=== PATIENT | female | born 1960 | race Caucasian/White ===

== ENCOUNTER 2017-01-16 10:00 | Outpatient (CLI) | payer OTHER ==
--- NOTE | 2017-01-27 17:52 | Mammography Report ---
DIGITAL SCREENING MAMMOGRAM: 01/16/2017 CLINICAL INDICATION: A 56-year-old nulliparous patient with family history of breast cancer, history of bilateral implants, history of benign biopsy. COMPARISON: Films from [place], [place] dated 11/08/2015, 04/02/2006. TECHNIQUE: Routine CC and MLO projections were obtained of the breasts as well as bilateral implant displaced views. FINDINGS: The breasts again demonstrate scattered fibroglandular densities bilaterally. Intramammar y lymph nodes are stable. Bilateral subpectoral saline implants are stable. No suspicious masses, c lustered microcalcifications, or regions of architectural distortion are identified. IMPRESSION: BENIGN FINDINGS. RECOMMENDATION: Routine annual screening unless otherwise clinically indicated. BIRADS CATEGORY 2 - BENIGN FINDINGS. STANDARD QUALIFYING STATEMENTS 1. This examination was reviewed with the aid of Computer-Aided Detection (CAD). 2. A negative or benign imaging report should not delay biopsy if clinically suspicious findings are present. Consider surgical consultation if warranted. More than 5% of cancers are not identified by i maging. 3. Dense breasts may obscure an underlying neoplasm. JOB #: [id number] EXT JOB #:[id number]
== END 2017-01-16 10:01 | disposition home or self-care (01) ==
LOC: DI 10:00
PROVIDERS: ATTEND Physician Assistant Medical
DX: Z12.31 Encounter for screening mammogram for malignant neoplasm of breast (principal); Z98.82 Breast implant status; Z80.3 Family history of malignant neoplasm of breast
CPT/HCPCS: 77067

== ENCOUNTER 2017-01-16 10:01 | Outpatient (CLI) | payer OTHER ==
--- NOTE | 2017-01-16 13:42 | DEXA Report ---
DEXA SCAN: 12/27/2016 CLINICAL INDICATION: Postmenopausal. TECHNIQUE: Dual energy x-ray absorptiometry (DXA) was performed on a [employer] system. Regions measured are the AP spine, femoral neck, and, if needed, forearm. COMPARISON: None. In accordance with the International Society for Clinical Densitometry (ISCD) guidelines, data from previous exams may be reanalyzed using current recommendations and techniques. This is done to allow a more accurate basis for comparison with the current study. FINDINGS: The data for the lumbar spine is as follows: REGION BMD (g/cm/cm) T-SCORE Z-SCORE L1 0.676 -3.8 -2.8 L2 0.783 -3.5 -2.5 L3 0.876 -2.7 -1.7 L4 0.885 -2.6 -1.7 TOTAL 0.814 -3.0 -2.1 NOTE: All evaluable vertebrae are used for classification. The data for the hip is as follows: REGION BMD (g/cm/cm) T-SCORE Z-SCORE Neck 0.804 -1.7 -0.6 TOTAL 0.837 -1.4 -0.6 NOTE: The femoral neck or total proximal femur, whichever is lowest, is used for classification. IMPRESSION: THE WHO CLASSIFICATION BASED ON THE INTERNATIONAL REFERENCE STANDARD IS OSTEOPOROSIS. THE FRACTURE RISK IS HIGH. RECOMMENDATION: Patients with diagnosis of osteoporosis or osteopenia should have regular bone mineral density assessment. For those eligible for Medicare, routine testing is allowed once every 2 years. Testing frequency can be increased for patients who have rapidly progressing disease or for those who are receiving medical therapy to restore bone mass. COMMENT: World Health Organization (WHO) definitions for osteoporosis and osteopenia: NORMAL BMD: T-score at -1.0 or higher, fracture risk is low. OSTEOPENIA BMD: T-score between -1.0 and -2.5, fracture risk is increased. OSTEOPOROSIS BMD: T-score at -2.5 or lower, fracture risk high. National Osteoporosis Foundation recommends: 1. Obtain adequate dietary calcium (at least 1200 mg per day) and vitamin D (400 -800 international units per day). 2. Participate, as appropriate, in regular weightbearing and muscle- strengthening exercise. 3. Avoid tobacco use and reduce alcohol and caffeine intake. 4. For more detailed information see the website at www.NOF.org. MTDD
== END 2017-01-16 10:02 | disposition home or self-care (01) ==
LOC: DI 10:01
PROVIDERS: ATTEND Physician Assistant Medical
DX: M81.0 Age-related osteoporosis without current pathological fracture (principal); Z78.0 Asymptomatic menopausal state
CPT/HCPCS: 77080

== ENCOUNTER → 2017-04-18 | Outpatient (CLI) | payer BC, OTHER ==
[2017-04-18 17:56] LABS: BILIRUBIN,URINE NEGATIVE (NEGATIVE); PH,URINE 8.5 PH (5.0-7.5)
[2017-04-18 18:15] LABS: UR CULTURE IF IND INDICATED
== END ==
LOC: LAB.R 12:03
PROVIDERS: ATTEND Physician Assistant Medical
DX: R30.0 Dysuria (principal)
CPT/HCPCS: 81001; 87086

== ENCOUNTER 2017-04-21 12:49 | Outpatient (CLI) | payer BC ==
[2017-04-21 18:59] LABS: CALCIUM 9.5 mg/dL (8.5-10.3); CREATININE 0.8 mg/dL (0.4-1.0); POTASSIUM 4.1 mmol/L (3.5-5.0)
== END 2017-04-21 12:50 | disposition home or self-care (01) ==
LOC: LAB.F 12:49
PROVIDERS: ATTEND Internal Medicine Endocrinology, Diabetes & Metabolism
DX: M81.0 Age-related osteoporosis without current pathological fracture (principal)
CPT/HCPCS: 36415; 80048

== ENCOUNTER 2018-01-26 14:21 | Outpatient (CLI) | payer BC ==
--- NOTE | 2018-01-26 15:50 | DEXA Report ---
Procedure Date: 01/26/2018 Accession Number: [id number] / [id number] Procedure: DEX - Dexa Spine and/or Hip CPT Code: FULL RESULT: EXAM: Dexa Spine and/or Hip DATE: 01/26/2018 2:51 PM CLINICAL HISTORY: OSTEOPROSIS TECHNIQUE: Dual energy x-ray absorptiometry (DXA) was performed on a [employer] System. Regions measured are the AP Spine, femoral neck, and if needed forearm. COMPARISON: 01/16/2017 In accordance with the International Society for Clinical Densitometry (ISCD) guidelines, data from previous exams may be reanalyzed using current recommendations and techniques. This is done to allow a more accurate basis for comparison with the current study. FINDINGS: The data for the lumbar spine is as follows: BMD (g/cm/cm) T-SCORE Z-SCORE REGION L1 0.786 -2.9 -1.9 L2 0.858 -2.9 -1.9 L3 0.987 -1.8 -0.8 L4 0.925 -2.3 -1.3 TOTAL 0.899 -2.3 -1.4 NOTE: All evaluable vertebrae are used for classification The data for the hip is as follows: BMD (g/cm/cm) T-SCORE Z-SCORE REGION Neck 0.788 -1.8 -0.7 TOTAL 0.839 -1.3 -0.6 NOTE: The femoral neck or total proximal femur, whichever is lowest, is used for classification. DXA RESULTS SUMMARY: Spine SCAN DATE AGE BMD CHANGE VS CHANGE VS PREVIOUS PREVIOUS % 01[age]26/2018 [age] 0.899 0.085* 10.4* 01/16/2017 [age] 0.814 * Denotes significant change at the 95% confidence level. Denotes dissimilar scan types or analysis methods. DXA RESULTS SUMMARY: Hip SCAN DATE AGE BMD CHANGE VS CHANGE VS PREVIOUS PREVIOUS % [birth year]26/2018 57.6 0.839 0.002 0.2 01/16/2017 56.6 0.837 * Denotes significant change at the 95% confidence level. Denotes dissimilar scan types or analysis methods. IMPRESSION: THE WHO CLASSIFICATION BASED ON THE INTERNATIONAL REFERENCE STANDARD IS OSTEOPENIA. THE FRACTURE RISK IS INCREASED. THERE HAS BEEN STATISTICALLY SIGNIFICANT INTERVAL INCREASE IN BONE MINERAL DENSITY OF THE LUMBAR SPINE FROM 01/16/2017. NO STATISTICALLY SIGNIFICANT INTERVAL CHANGE IN BONE MINERAL DENSITY OF THE LEFT HIP. RECOMMENDATION: Patients with diagnosis of osteoporosis or osteopenia should have regular bone mineral density assessment. For those eligible for Medicare, routine testing is allowed once every 2 years. Testing frequency can be increased for patients who have rapidly progressing disease or for those who are receiving medical therapy to restore bone mass. COMMENT: World Health Organization (WHO) definitions for osteoporosis and osteopenia: NORMAL BMD: T-score at -1.0 or higher, fracture risk is low OSTEOPENIA BMD: T-score between -1.0 and -2.5, fracture risk is increased. OSTEOPOROSIS BMD: T-score at -2.5 or lower, fracture risk is high. National Osteoporosis Foundation recommends: 1. Obtain adequate dietary calcium (at least 1200 mg per day) and vitamin D (400-800 international units per day). 2. Participate, as appropriate, in regular weightbearing and muscle-strengthening exercise. 3. Avoid tobacco use and reduce alcohol and caffeine intake. 4. For more detailed information see the website at www.NOF.org.
== END 2018-01-26 14:22 | disposition home or self-care (01) ==
LOC: DI 14:21
PROVIDERS: ATTEND Internal Medicine
DX: M85.89 Other specified disorders of bone density and structure, multiple sites (principal)
CPT/HCPCS: 77080

== ENCOUNTER 2018-01-26 14:22 | Outpatient (CLI) | payer BC ==
--- NOTE | 2018-01-27 15:21 | Mammography Report ---
Procedure Date: 01/26/2018 Accession Number: [id number] / [id number] Procedure: [facility] - Screening Mammo Dig w/Implants CPT Code: FULL RESULT: EXAM: Screening Mammo Dig w/Implants DATE: 01/26/2018 2:56 PM CLINICAL HISTORY: 57-year-old nulliparous patient with family history of breast cancer, history of bilateral implants for screening TECHNIQUE: Bilateral CC and MLO views and implant displaced views were obtained. COMPARISON: 01/16/2017, 11/08/2015, 04/02/2006 FINDINGS: The breasts demonstrate heterogeneously dense fibroglandular parenchyma bilaterally. Bilateral saline implants are stable. Intramammary lymph nodes are stable. No suspicious masses, clustered microcalcifications, or regions of architectural distortion are identified. IMPRESSION: Benign findings RECOMMENDATION: Routine annual screening unless otherwise clinically indicated. BIRADS CATEGORY 2: Benign findings STANDARD QUALIFYING STATEMENTS: 1. This examination was reviewed with the aid of Computer-Aided Detection (CAD). 2. A negative or benign imaging report should not delay biopsy if clinically suspicious findings are present. Consider surgical consultation if warrented. More than 5% of cancers are not identified by imaging. 3. Dense breasts may obscure an underlying neoplasm.
== END 2018-01-26 14:23 | disposition home or self-care (01) ==
LOC: DI 14:22
PROVIDERS: ATTEND Physician Assistant Medical
DX: Z12.31 Encounter for screening mammogram for malignant neoplasm of breast (principal); Z80.3 Family history of malignant neoplasm of breast; Z98.82 Breast implant status
CPT/HCPCS: 77067

== ENCOUNTER 2019-03-17 01:19 | Inpatient (IN) | payer BC ==
[2019-03-17 01:40] LABS: BASOPHILS # (AUTO) 0.1 10^3/uL (0.0-0.1); BASOPHILS % (AUTO) 0.7 %; EOSINOPHILS # (AUTO) 0.4 10^3/uL (0.0-0.7); EOSINOPHILS % (AUTO) 4.6 %; HGB - HEMOGLOBIN 14.5 g/dL (12.0-16.0); LYMPHOCYTES # (AUTO) 2.7 10^3/uL (1.5-3.5); LYMPHOCYTES % (AUTO) 29.4 %; MEAN CORPUSCULAR HEMOGLOBIN 30.3 pg (27.0-31.0); MEAN CORPUSCULAR HGB CONC 32.1 g/dL (32.0-36.0); MEAN CORPUSCULAR VOLUME 94.4 fL (81.0-99.0); MEAN PLATELET VOLUME 10.7 fL (7.9-10.8); MONOCYTES # (AUTO) 0.8 10^3/uL (0.0-1.0); MONOCYTES % (AUTO) 8.9 %; NEUTROPHILS # (AUTO) 5.1 10^3/uL (1.5-6.6); NEUTROPHILS % (AUTO) 56.2 %; PLT - PLATELET COUNT 171 10^3/uL (130-450); RED BLOOD COUNT 4.79 10^6/uL (4.20-5.40); RED CELL DISTRIBUTION WIDTH 14.1 % (12.0-15.0); WHITE BLOOD COUNT 9.1 x10^3/uL (4.8-10.8)
[2019-03-17 01:51] LABS: ALBUMIN 4.2 g/dL (3.2-5.5); ALBUMIN/GLOBULIN RATIO 1.3 (1.0-2.2); BILIRUBIN,TOTAL 0.4 mg/dL (0.2-1.0); CREATININE 0.9 mg/dL (0.4-1.0); TOTAL PROTEIN 7.4 g/dL (6.7-8.2)
--- NOTE | 2019-03-17 02:02 | ED Physician Documentation ---
PD HPI CHEST PAIN - Stated complaint Stated Complaint: CHEST PRESSURE - Chief complaint Chief Complaint: Cardiac - History obtained from History obtained from: Patient - History of Present Illness Timing - onset: Enter time (22:00), Today Timing - onset during: Sleep Timing - details: Abrupt onset Pain level max: 1 Pain level now: 0 Quality: Pressure Location: Substernal, Left chest Radiation: Left upper extremity Improved by: Rest Worsened by: Exertion Associated symptoms: Palpitations. No: Shortness of air Similar symptoms before: Has not had sx before Recently seen: Not recently seen - Additional information Additional information: patient's chief complaint is rapid and irregular palpitations that woke her from sleep at 10 PM. She also notes episodic left shoulder and left chest pain since onset of palpitations with occasional radiation down LUE. Denies h/o similar symptoms. Denies cardiac history, has not had stress test in the past. Review of Systems Constitutional: reports: Reviewed and negative Eyes: reports: Reviewed and negative Ears: reports: Reviewed and negative Nose: reports: Reviewed and negative Throat: reports: Reviewed and negative Cardiac: reports: Chest pain / pressure, Palpitations. denies: Pedal edema, Calf pain Respiratory: reports: Reviewed and negative GI: reports: Reviewed and negative : denies: Dysuria, Frequency Skin: reports: Reviewed and negative Musculoskeletal: reports: Reviewed and negative Neurologic: reports: Reviewed and negative PD PAST MEDICAL HISTORY - Past Medical History Past Medical History: Yes Musculoskeletal: Osteoporosis - Past Surgical History Past Surgical History: Yes - Present Medications Home Medications: Ambulatory Orders Medication Instructions Recorded Confirmed Zoledronic Acid/Mannitol&Water 03/17/19 [Reclast 5 mg/100 ml Solution] - Allergies Allergies/Adverse Reactions: Allergies Allergy/AdvReac Type Severity Reaction Status Date / Time No Known Drug Allergies Allergy Verified 03/17/19 01:39 - Social History Does the pt smoke?: No Smoking Status: Never smoker Does the pt drink ETOH?: Yes Does the pt have substance abuse?: No - Immunizations Immunizations are current?: Yes - POLST Patient has POLST: No PD ED PE NORMAL - Vitals Vital signs reviewed: Yes - General General: Alert and oriented X 3, No acute distress, Well developed/nourished - HEENT HEENT: Moist mucous membranes - Neck Neck: Supple, no meningeal sign - Cardiac Cardiac: No murmur - Respiratory Respiratory: No respiratory distress, Clear bilaterally - Abdomen Abdomen: Soft, Non tender - Back Back: No CVA TTP - Derm Derm: Normal color, Warm and dry - Extremities Extremities: No edema - Neuro Neuro: Alert and oriented X 3 PD ED PE EXPANDED - Cardiac Cardiac: Tachy, Irregularly irregular Results - Vitals Vitals: Vital Signs - 24 hr 03/17/19 03/17/19 03/17/19 01:22 01:35 01:48 Temperature 36.1 C L Heart Rate 109 H 145 H Respiratory 18 19 Rate Blood Pressure 137/82 H 135/74 H Blood Pressure [Left] Blood Pressure 126/78 [Right] O2 Saturation 100 97 03/17/19 03/17/19 03/17/19 01:51 02:22 02:27 Temperature Heart Rate 103 H 105 H Respiratory 21 19 Rate Blood Pressure 116/64 100/70 Blood Pressure 135/74 H [Left] Blood Pressure [Right] O2 Saturation 97 96 03/17/19 03/17/19 03/17/19 02:32 02:55 03:34 Temperature Heart Rate 100 94 106 H Respiratory 16 17 25 H Rate Blood Pressure 99/56 L 100/63 109/84 H Blood Pressure [Left] Blood Pressure [Right] O2 Saturation 99 97 97 03/17/19 03/17/19 03/17/19 03:45 04:04 04:29 Temperature Heart Rate 108 H 82 85 Respiratory 21 15 22 Rate Blood Pressure 103/71 97/74 105/74 Blood Pressure [Left] Blood Pressure [Right] O2 Saturation 97 98 98 03/17/19 03/17/19 03/17/19 04:35 04:43 04:50 Temperature Heart Rate 91 95 111 H Respiratory 22 19 13 Rate Blood Pressure 101/81 H 91/67 92/72 Blood Pressure [Left] Blood Pressure [Right] O2 Saturation 99 99 97 03/17/19 03/17/19 03/17/19 04:58 05:04 05:09 Temperature Heart Rate 117 H 118 H 109 H Respiratory 24 14 18 Rate Blood Pressure 100/74 83/63 L 101/80 Blood Pressure [Left] Blood Pressure [Right] O2 Saturation 96 97 99 03/17/19 03/17/19 03/17/19 05:16 05:21 05:32 Temperature Heart Rate 123 H 119 H 110 H Respiratory 24 19 21 Rate Blood Pressure 88/67 L 94/63 95/55 L Blood Pressure [Left] Blood Pressure [Right] O2 Saturation 97 98 98 03/17/19 03/17/19 03/17/19 05:54 06:04 06:18 Temperature 36.6 C Heart Rate 96 98 105 H Respiratory 20 17 17 Rate Blood Pressure 95/55 L 105/76 115/68 Blood Pressure [Left] Blood Pressure [Right] O2 Saturation 99 100 99 Oxygen O2 Source Room air - EKG (time done) No standard instances Rate: Rate (enter#) (133), Tachy Rhythm: Atrial fibrillation QRS: Normal Ischemia: Normal ST segments Computer interpretation: Disagree with computer (no significant ST abnormalities) - Labs Labs: Laboratory Tests 03/17/19 03/17/19 03/17/19 01:34 01:34 01:34 WBC 9.1 RBC 4.79 Hgb 14.5 Hct 45.2 MCV 94.4 MCH 30.3 MCHC 32.1 RDW 14.1 Plt Count 171 MPV 10.7 Neut # (Auto) 5.1 Lymph # (Auto) 2.7 [place] # (Auto) 0.8 Eos # (Auto) 0.4 Baso # (Auto) 0.1 Absolute Nucleated RBC 0.00 Nucleated RBC % 0.0 Sodium 139 Potassium 3.9 Chloride 104 Carbon Dioxide 25 Anion Gap 10.0 BUN 27 H Creatinine 0.9 Estimated GFR (MDRD) 64 L Glucose 123 H Calcium 9.0 Total Bilirubin 0.4 AST 22 ALT 23 Alkaline Phosphatase 60 Troponin I High Sens 6.4 Total Protein 7.4 Albumin 4.2 Globulin 3.2 Albumin/Globulin Ratio 1.3 Lipase 30 TSH 03/17/19 01:34 WBC RBC Hgb Hct MCV MCH MCHC RDW Plt Count MPV Neut # (Auto) Lymph # (Auto) [place] # (Auto) Eos # (Auto) Baso # (Auto) Absolute Nucleated RBC Nucleated RBC % Sodium Potassium Chloride Carbon Dioxide Anion Gap BUN Creatinine Estimated GFR (MDRD) Glucose Calcium Total Bilirubin AST ALT Alkaline Phosphatase Troponin I High Sens Total Protein Albumin Globulin Albumin/Globulin Ratio Lipase TSH 3.63 - Rads (name of study) chest xray Radiology: Prelim report reviewed, See rad report PD MEDICAL DECISION MAKING - ED course Complexity details: reviewed results, re-evaluated patient, considered differential, d/w patient ED course: rate control was transiently achieved with IV cardizem (15 mg followed by 10mg) but she remained in atrial fibrillation. Procainamide then given IV but this had to be stopped due to hypotension (upper 80s SBP, responded quickly to IV fluids and discontinuation of the procainamide). Her heart rate gradually increased to 110s-120s. I discussed with her the option of electrocardioversion, which she prefers to avoid. I discussed alternative approach of IV cardizem drip and admission with goal of rate control and possible spontaneous conversion to NSR if she has a longer period of rate control than she had earlier with the IVP doses of cardizem. Furthermore, if lasting rate control is achieved and continued with transition to PO medication (such as cardizem), can consider initiating anticoagulant and d/c if she remains in atrial fibrillation that is rate-controlled. Departure - Departure Disposition: ED Place in Observation Clinical Impression: Atrial fibrillation with RVR Condition: Good Discharge Date/Time: 03/17/19 07:08
[2019-03-17] MEDS ORDERED: diltiaZEM INJ 5 MG/ML VIAL IVP STA ×2 (02:13→03:20)
--- NOTE | 2019-03-17 02:56 | XRAY Report ---
Reason: chest pain Procedure Date: 03/17/2019 Accession Number: [id number] / [id number] Procedure: XR - Chest 1 View X-Ray CPT Code: 14348 FULL RESULT: EXAM: CHEST RADIOGRAPHY EXAM DATE: 03/17/2019 02:38 AM. CLINICAL HISTORY: Chest pain. COMPARISON: None. TECHNIQUE: 1 view. FINDINGS: Lungs/Pleura: No alveolar consolidation or pleural effusion seen. No pneumothorax. Mediastinum: Within exam limitations, the cardiomediastinal contour is normal. Other: None. IMPRESSION: 1. No acute abnormality seen in the chest. RADIA
[2019-03-17] MEDS ORDERED: SODIUM CHLORIDE 0.9% 500 ML IV STA (04:12)
[2019-03-17] MEDS ORDERED: PROCAINAMIDE 1,000 MG in SODIUM CHLORIDE 0.9% 240 ML IV STA (04:16)
[2019-03-17] MEDS ORDERED: SODIUM CHLORIDE 0.9% 500 ML IV ONE (05:07)
[2019-03-17] MEDS ORDERED: diltiaZEM INJ 125 MG in DEXTROSE 5% 100 ML IV STA (05:36)
[2019-03-17] MEDS ORDERED: diltiaZEM INJ 5 MG/ML VIAL ONE ×2 (05:53→05:57)
[2019-03-17] MEDS ORDERED: SODIUM CHLORIDE FLUSH 0.9% 10 ML SYRINGE IVP PRN (06:20)
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
[2019-03-17] MEDS ORDERED: SODIUM CHLORIDE 0.9% 500 ML IV PRN ×2 (07:28→08:01)
[2019-03-17] MEDS: SODIUM CHLORIDE FLUSH 0.9% 10 ML SYRINGE IVP SCH ×2 (09:07→16:35)
[2019-03-17] MEDS: ASPIRIN EC 81 MG TABLET PO SCH (09:10)
[2019-03-17] MEDS: diltiaZEM CD 180 MG CAPSULE PO SCH (12:23)
--- NOTE | 2019-03-17 15:42 | CARDIAC PROCEDURE NOTE ---
DATE OF SERVICE: 03/17/2019 Physician: Anusha Shane MD INDICATION: Chest pain, new onset atrial fibrillation. CARDIAC RISK FACTORS: Postmenopausal status, family history of heart disease. PROCEDURE: The patient underwent nuclear myocardial perfusion imaging. The test was ordered as a pharmaceutical stress test; however, the patient developed chest pain at rest, which she rated 3/10, therefore no stress portion (with Lexiscan) was done. She was injected with the sestamibi nuclear agent and underwent only 1 scan. Heart rate at this time 90-98, in atrial fibrillation. Blood pressure at this time 102/70. EKG: Atrial fibrillation, response, nonspecific ST-T changes. IMPRESSION 1. Recurrence of chest pain at rest, precluded administration of pharmaceutical stress agent. 2. Nonspecific ST changes are present on her EKG. 3. Nuclear images reported separately. TD: 03/17/2019 15:25 MTDD
--- NOTE | 2019-03-17 15:57 | Nuclear Medicine Report ---
Reason: Chest pain Procedure Date: 03/17/2019 Accession Number: [id number] / [id number] Procedure: NM - Myocardial Perfusion STR/RST CPT Code: FULL RESULT: EXAM: SINGLE-ISOTOPE MYOCARDIAL PERFUSION IMAGING WITH TOMOGRAPHIC IMAGING, QUANTITATIVE ANALYSIS, WALL MOTION ANALYSIS AND CALCULATION OF EJECTION FRACTION. EXAM DATE: 03/17/2019 03:22 PM. CLINICAL HISTORY: Chest pain. COMPARISON: None available. TECHNIQUE: The patient was injected with 10.2 mCi technetium 99m Myoview while experiencing chest pain. Rest images were not obtained. Gated tomographic images were obtained for wall motion analysis and computation of left ventricular ejection fraction. FINDINGS: There is bowel activity adjacent to the inferolateral wall which results in an artifact. On visual analysis, there is a moderate defect in the distal anterior wall and apex. Computer analysis reports a summed stress score of 19 with defects in the anterior wall, apex, distal septum, lateral wall, and distal inferior wall. Wall motion analysis demonstrates no significant focal wall motion abnormality. The left ventricular end-diastolic volume is 71 cc. The left ventricular end-systolic volume is 23 cc. The left ventricular ejection fraction is calculated to be 67%. IMPRESSION: 1. Technically limited study. A lower than typical stress radiotracer dose was administered. Resting images were not obtained. Bowel activity adjacent to the inferior wall results in an artifact. 2. There is an apparent moderate defect in the apex and distal anterior wall. Computer analysis suggests a larger and more severe defect than is appreciated on visual analysis. 3. Left ventricular ejection fraction of 67%. 4. Normal segmental and global wall motion. 5. Normal left ventricular cavity size. Please correlate findings with stress ECG tracings and procedure notes. RADIA
--- NOTE | 2019-03-17 15:59 | PROVIDER PROGRESS NOTE ---
Hospitalist Cross-cover Note - Cross-Cover Note Cross-Cover Note: I met the patient and reviewed her admission complaint, her history, her tests results and the further plan. Patient described MVP, which she "grew out of". She had awoken with feeling a racing of her heart and chest pressure. She has never had chest pressure before. This radiated to her neck and down her left arm. There is currently on and off chest discomfort which she rates a 3/10. At its worst it was 7/10 at in the ER. Her hs-troponins are in the wiseman zone. A resting Echo shows normal LVEF, no evidence of mitral valve prolapse and borderline pulmonary hypertension with PA pressure 36 mmHg. I advised that she undergo stress testing before discharge, to evaluate for coronary obstructive disease, since the etiology of her A. fib is unclear and since there are c/o chest pressure and since there is a mild elevation of hs- troponin tests. She agreed. As the patient was to be taken for her resting nuclear scan, she reported chest pain to the utility technician who then described that to me. I advised that the Sestamibi nuclear agent be given and the this be considered her stress scan, and not to have her undergo a treadmill exercise or get pharmaceutical stress. The nuclear images returned showing a moderate sized defect of hypoperfusion in the anteroseptal wall and especially the apex. I described these results to the patient and advised transfer for coronary angiography, continuation of daily aspirin, starting therapeutic Lovenox, sublingual or nitro drip for ongoing chest pain and continued Cardizem orally, which has been controlling her heart rate today, in the 60s to 90s, after the IV Cardizem drip was stopped. The patient agreed to undergo angiography, and would like to have it done by her sister's acquaintance who is a Soaping Department Supervisor in [place]. The wash house worker and I spoke to the case management assistant regarding whether prior authorization is needed to be transferred to [place]. Phone calls were made to her [employer], but after 1630, there was no to give us answers. By 1730 PM, her chest pain had resolved on an IV nitroglycerin drip, and the patient requested to remain here overnight, in order to reach out her insurance company in the morning with the above questions. : Time required to have bedside discussion, initiation of meds, reaching out to her [employer], discussion with our case management team and wash house worker, review of risks and benefits, and CRITICAL CARE TIME: 60 minutes.
[2019-03-17] MEDS ORDERED: NITROGLYCERIN 50 MG/250 ML 50 MG/250 ML BOTTLE IV SCH (16:00)
[2019-03-17] MEDS ORDERED: ATORVASTATIN 40 MG TABLET PO ONE (16:03)
[2019-03-17] MEDS: ENOXAPARIN 60 MG/0.6 ML SYRINGE SUBQ SCH (16:33)
[2019-03-17] MEDS: ACETAMINOPHEN 325 MG TABLET PO PRN (17:39)
[2019-03-17] MEDS ORDERED: LACTATED RINGERS 500 ML IV ONE (22:36)
[2019-03-18] MEDS: SODIUM CHLORIDE FLUSH 0.9% 10 ML SYRINGE IVP SCH ×2 (00:46→09:29)
[2019-03-18] MEDS: ACETAMINOPHEN 325 MG TABLET PO PRN ×2 (03:30→07:54)
[2019-03-18 04:58] LABS: BASOPHILS % (AUTO) 0.7 %; EOSINOPHILS # (AUTO) 0.2 10^3/uL (0.0-0.7); LYMPHOCYTES % (AUTO) 32.1 %; MEAN CORPUSCULAR HEMOGLOBIN 30.5 pg (27.0-31.0); MEAN CORPUSCULAR VOLUME 95.2 fL (81.0-99.0); MEAN PLATELET VOLUME 10.3 fL (7.9-10.8); MONOCYTES # (AUTO) 0.6 10^3/uL (0.0-1.0); MONOCYTES % (AUTO) 10.2 %; NEUTROPHILS # (AUTO) 3.2 10^3/uL (1.5-6.6); NEUTROPHILS % (AUTO) 52.8 %; PLT - PLATELET COUNT 146 10^3/uL (130-450); RED BLOOD COUNT 3.94 10^6/uL (4.20-5.40); WHITE BLOOD COUNT 6.1 x10^3/uL (4.8-10.8)
[2019-03-18 05:11] LABS: BUN - BLOOD UREA NITROGEN 19 mg/dL (6-20); CALCIUM 8.4 mg/dL (8.5-10.3); CARBON DIOXIDE - CO2 25 mmol/L (21-32); CHLORIDE 111 mmol/L (101-111); CHOL/HDL RATIO 2.3 (<4.4); CHOLESTEROL 159 mg/dL; CREATININE 0.7 mg/dL (0.4-1.0); GFR - MDRD 85 (>89); GLUCOSE 106 mg/dL (70-100); HDL CHOLESTEROL 69 mg/dL; LDL CHOLESTEROL,CALCULATED 79 mg/dL; LDL/HDL RATIO 1.1 (<4.4); MAGNESIUM 2.1 mg/dL (1.7-2.8); SODIUM 141 mmol/L (135-145); VLDL CHOLESTEROL 11 mg/dL
[2019-03-18] MEDS: ENOXAPARIN 60 MG/0.6 ML SYRINGE SUBQ SCH (05:40)
[2019-03-18] MEDS: ASPIRIN EC 81 MG TABLET PO SCH (07:54)
[2019-03-18] MEDS: diltiaZEM CD 180 MG CAPSULE PO SCH (07:54)
[2019-03-18] MEDS ORDERED: SODIUM CHLORIDE 0.9% 500 ML IV ONE (08:03)
[2019-03-18] MEDS ORDERED: METOPROLOL SUCCINATE 25 MG TABLET PO SCH (09:00)
[2019-03-18] MEDS ORDERED: SODIUM CHLORIDE FLUSH 0.9% 10 ML SYRINGE ONE (10:38)
--- NOTE | 2019-03-18 12:00 | Discharge Plan ---
Discharge Plan Problem Reviewed?: Yes Disposition: 02 Transfer Acute Care Hosp Condition: Serious No Smoking: If you smoke, Please STOP! Call for help. Follow-up with: Juany Pino PA-C [Primary Care Provider] -
[2019-03-18 16:15] VITALS: BP 103/65
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
== END 2019-03-18 16:00 | disposition short-term general hospital (02) | DRG 311 ==
LOC: ED 01:19 → ICU 06:20 → OBSVTOIN 15:24
PROVIDERS: ADMIT Internal Medicine; ATTEND Internal Medicine
DX: I20.0 Unstable angina (principal); I48.91 Unspecified atrial fibrillation; R94.39 Abnormal result of other cardiovascular function study; I95.2 Hypotension due to drugs; T46.1X5A Adverse effect of calcium-channel blockers, initial encounter; T46.2X5A Adverse effect of other antidysrhythmic drugs, initial encounter; Y92.238 Other place in hospital as the place of occurrence of the external cause; Z78.0 Asymptomatic menopausal state; M81.0 Age-related osteoporosis without current pathological fracture; Z82.49 Family history of ischemic heart disease and other diseases of the circulatory system; Z86.718 Personal history of other venous thrombosis and embolism
CPT/HCPCS: 36415; 71045; 78452; 80048; 80053; 80061; 83690; 83735; 84443; 84484; 85025; 85379; 87150; 93005; 93017; 93306; 96365; 96366; 96367; 96375; 96376; 99284; 99285; A9270; A9500; G0378; J1650; J2690; 83721

== ENCOUNTER 2019-03-30 15:18 | Outpatient (CLI) | payer BC ==
--- NOTE | 2019-03-31 09:57 | DEXA Report ---
Reason: OSTEOPOROSIS Procedure Date: 03/30/2019 Accession Number: [id number] / [id number] Procedure: DEX - Dexa Spine and/or Hip CPT Code: FULL RESULT: EXAM: Dexa Spine and/or Hip DATE: 03/30/2019 3:57 PM CLINICAL HISTORY: Follow-up osteopenia TECHNIQUE: Dual energy x-ray absorptiometry (DXA) was performed on a [employer] System. Regions measured are the AP Spine, femoral neck, and if needed forearm. COMPARISON: 01/26/2018 In accordance with the International Society for Clinical Densitometry (ISCD) guidelines, data from previous exams may be reanalyzed using current recommendations and techniques. This is done to allow a more accurate basis for comparison with the current study. FINDINGS: The data for the lumbar spine is as follows: BMD (g/cm/cm) T-SCORE Z-SCORE REGION L1 0.797 -2.8 -1.7 L2 0.927 -2.3 -1.2 L3 1.027 -1.4 -0.4 L4 0.961 -2.0 -0.9 TOTAL 0.933 -2.1 -1.0 NOTE: All evaluable vertebrae are used for classification The data for the hip is as follows: BMD (g/cm/cm) T-SCORE Z-SCORE REGION Neck 0.821 -1.6 -0.4 TOTAL 0.850 -1.3 -0.4 NOTE: The femoral neck or total proximal femur, whichever is lowest, is used for classification. DXA RESULTS SUMMARY: Spine SCAN DATE [age] BMD CHANGE VS CHANGE VS PREVIOUS PREVIOUS % 1/30/2019 [age] 0.933 0.034* 3.8* 01/26/2018 59.6 0.899 0.085* 10.4* 01/16/2017 58.6 0.814 * Denotes significant change at the 95% confidence level. Denotes dissimilar scan types or analysis methods. DXA RESULTS SUMMARY: Hip SCAN DATE AGE BMD CHANGE VS CHANGE VS PREVIOUS PREVIOUS % 1/30/2019 60.8 0.850 0.011 1.3 01[birth year]26/2018 59.6 0.839 0.002 0.2 01/16/2017 58.6 0.837 * Denotes significant change at the 95% confidence level. Denotes dissimilar scan types or analysis methods. IMPRESSION: THE WHO CLASSIFICATION BASED ON THE INTERNATIONAL REFERENCE STANDARD IS OSTEOPENIA, REFERENCE LUMBAR SPINE. THE FRACTURE RISK IS INCREASED. RECOMMENDATION: Patients with diagnosis of osteoporosis or osteopenia should have regular bone mineral density assessment. For those eligible for Medicare, routine testing is allowed once every 2 years. Testing frequency can be increased for patients who have rapidly progressing disease or for those who are receiving medical therapy to restore bone mass. COMMENT: World Health Organization (WHO) definitions for osteoporosis and osteopenia: NORMAL BMD: T-score at -1.0 or higher, fracture risk is low OSTEOPENIA BMD: T-score between -1.0 and -2.5, fracture risk is increased. OSTEOPOROSIS BMD: T-score at -2.5 or lower, fracture risk is high. National Osteoporosis Foundation recommends: 1. Obtain adequate dietary calcium (at least 1200 mg per day) and vitamin D (400-800 international units per day). 2. Participate, as appropriate, in regular weightbearing and muscle-strengthening exercise. 3. Avoid tobacco use and reduce alcohol and caffeine intake. 4. For more detailed information see the website at www.NOF.org.
== END 2019-03-30 15:19 | disposition home or self-care (01) ==
LOC: DI 15:18
PROVIDERS: ATTEND Registered Nurse
DX: M85.89 Other specified disorders of bone density and structure, multiple sites (principal)
CPT/HCPCS: 77080

== ENCOUNTER 2020-03-15 14:13 | Outpatient (CLI) | payer OTHER, BC ==
--- NOTE | 2020-03-15 15:13 | DEXA Report ---
PROCEDURE: Dexa Spine and/or Hip INDICATIONS: Osteoporosis TECHNIQUE: Dual energy x-ray absorptiometry (DXA) was performed on a [employer] System. Regions measur ed are the AP Spine, femoral neck, and if needed forearm. COMPARISON: None. FINDINGS: Lumbar Spine: Bone Mineral Density 0.934 g/cm/cm,T score -2.0, Left Femoral Neck: Bone Mineral Density 0.852 g/cm/cm, T score -1.2, (T score greater or equal to -1.0: NORMAL) (T score from -1.1 to -2.4: OSTEOPENIA) (T score less than or equal to -2.5 to: OSTEOPOROSIS) Impression: Osteopenia Patients with diagnosis of osteoporosis or osteopenia should have regular bone mineral density assess ment. For those eligible for Medicare, routine testing is allowed once every 2 years. Testing frequ ency can be increased for patients who have rapidly progressing disease or for those who are receivin g medical therapy to restore bone mass. Reviewed by: Hang Phillips MD on 03/15/2020 3:12 PM PDT Approved by: Hang Phillips MD on 03/15/2020 3:12 PM PDT Station ID: [id number]
== END 2020-03-15 14:14 | disposition home or self-care (01) ==
LOC: DI 14:13
PROVIDERS: ATTEND Registered Nurse
DX: M85.89 Other specified disorders of bone density and structure, multiple sites (principal)
CPT/HCPCS: 77080

== ENCOUNTER 2020-12-27 13:33 | Outpatient (CLI) | payer BC | END 2020-12-27 13:34 | disposition home or self-care (01) | LOC: LAB.S 13:33 | PROVIDERS: ATTEND Registered Nurse | DX: Z00.00 Encounter for general adult medical examination without abnormal findings (principal) | CPT/HCPCS: 36415; 81599; 86706; 86708 ==

== ENCOUNTER 2021-02-27 14:16 | Outpatient (CLI) | payer BC ==
--- NOTE | 2021-02-27 15:34 | DEXA Report ---
PROCEDURE: Dexa Spine and/or Hip INDICATIONS: OSTEOPOROSIS TECHNIQUE: Dual energy x-ray absorptiometry (DXA) was performed on a [employer] System. Regions measur ed are the AP Spine, femoral neck, and if needed forearm. COMPARISON: None. FINDINGS: Lumbar Spine: Bone Mineral Density 0.959 g/cm/cm,T score -1.8, osteopenia Left Hip: Bone Mineral Density 0.857 g/cm/cm,T score -1.2, osteopenia Left Femoral Neck: Bone Mineral Density 0.805 g/cm/cm, T score -1.7, osteopenia (T score greater or equal to -1.0: NORMAL) (T score from -1.1 to -2.4: OSTEOPENIA) (T score less than or equal to -2.5 to: OSTEOPOROSIS) Impression: Bone mineral density consistent with osteopenia. Patients with diagnosis of osteoporosis or osteopenia should have regular bone mineral density assess ment. For those eligible for Medicare, routine testing is allowed once every 2 years. Testing frequ ency can be increased for patients who have rapidly progressing disease or for those who are receivin g medical therapy to restore bone mass. Reviewed by: Rolando Tobar on 02/27/2021 3:33 PM PDT Approved by: Rolando Tobar on 02/27/2021 3:33 PM PDT Station ID: [id number]
== END 2021-02-27 14:17 | disposition home or self-care (01) ==
LOC: DI 14:16
PROVIDERS: ATTEND Physician Assistant
DX: Z00.00 Encounter for general adult medical examination without abnormal findings (principal); Z78.0 Asymptomatic menopausal state; M85.89 Other specified disorders of bone density and structure, multiple sites

== ENCOUNTER 2022-02-17 11:07 | Emergency (ER) | payer BC, OTHER ==
--- OUTSIDE RECORDS SUMMARY | 2022-02-17 11:19 | EXTERNAL MEDICAL SUMMARY RPT | Continuity of Care Document ---
:1960 Author Organization [facility] Address [address] [place] [address] Phone Allergies No information. Encounters No information. Functional Status No information. Immunizations No information. Medications No information. Problems No information. Procedures No information. Results/Labs No information. Social History No information. Vital Signs date measurement value units +0000 BMI BMI 23.85 kg/m2 +0000 BP_diastolic BP_diastolic 74 mm[H g] +0000 BP_systolic BP_systolic 116 mm[Hg] +0000 heart_rate heart_rate 61 /min +0000 height_metric height_metric 166.37 cm +0000 height_standard height_standard 65.5 in +0000 respiration_rate respiration_rate 15 /min +0000 temperature_metric temperature_metric 36.39 C +0000 temperature_standard temperature_standard 9 7.5 F +0000 weight_metric weight_metric 65.77 kg +0000 weight_standard weight_standard 145 lb
--- NOTE | 2022-02-17 13:11 | ED Physician Documentation ---
PD HPI LOWER EXT INJURY - Stated complaint Stated Complaint: RT CALF PX - Chief complaint Chief Complaint: Ext Problem - History obtained from History obtained from: Patient - History of Present Illness PD HPI LOW EXT INJURY LOCATION: Right, Calf Type of injury: Other (no apparent injury). No: Fall, Twist Where injury occurred: Home Timing - onset: How many days ago (2) Timing - duration: Days (2) Timing - details: Gradual onset, Still present Worsened by: Moving (plantarflexing), Palpating Associated symptoms: No: Weakness, Numbness, Swelling Similar symptoms before: Diagnosis (prior history of DVT. Not on anticoag still (was years ago).) Recently seen: Not recently seen Review of Systems Constitutional: denies: Fever Cardiac: denies: Chest pain / pressure Respiratory: denies: Dyspnea, Cough GI: denies: Abdominal Pain, Nausea, Vomiting Skin: denies: Rash, Lesions PD PAST MEDICAL HISTORY - Past Medical History Cardiovascular: None, Deep vein thrombosis Respiratory: None Neuro: None Endocrine/Autoimmune: None GI: None FUNCTIONAL ARCHITECT: None : None HEENT: None Psych: None Musculoskeletal: Osteoporosis - Past Surgical History Past Surgical History: Yes - Present Medications Home Medications: Ambulatory Orders Medication Instructions Recorded Confirmed Ascorbic Acid 500 mg PO DAILY 03/17/19 03/17/19 Cyanocobalamin (Vitamin B-12) 1,000 mcg PO DAILY 03/17/19 03/17/19 [Vitamin B-12] Glucosamine HCl/Chondroitin Nieves 1 each PO BID 03/17/19 03/17/19 [Glucosamine-Chondroitin Cap] Multivitamin,Therapeutic [Thera] 1 each PO DAILYWM 03/17/19 03/17/19 Vitamin E (Dl,Tocopheryl Acet) 400 unit PO DAILY 03/17/19 03/17/19 [Vitamin E] Zoledronic Acid/Mannitol&Water 5 mg IV .YEARLY 03/17/19 03/17/19 [Reclast 5 mg/100 ml Solution] - Allergies Allergies/Adverse Reactions: Allergies Allergy/AdvReac Type Severity Reaction Status Date / Time No Known Drug Allergies Allergy Verified 02/17/22 11:19 - Social History Does the pt smoke?: No Smoking Status: Never smoker Does the pt drink ETOH?: Yes Does the pt have substance abuse?: No - Immunizations Immunizations are current?: Yes - POLST Patient has POLST: No PD ED PE NORMAL - Vitals Vital signs reviewed: Yes - General General: Alert and oriented X 3, No acute distress, Well developed/nourished - Cardiac Cardiac: RRR, No murmur - Respiratory Respiratory: No respiratory distress, Clear bilaterally - Derm Derm: Normal color, Warm and dry - Extremities Extremities: No edema, Other (calf area with some mild tenderness to palpation. No redness, rash nor sores. Achilles firm and intact.) - Neuro Neuro: Alert and oriented X 3, No motor deficit, No sensory deficit, Normal speech Results - Vitals Vitals: Oxygen O2 Source Room air - Rads (name of study) duplex US Radiology: Prelim report reviewed (no DVT), See rad report PD MEDICAL DECISION MAKING - ED course Complexity details: reviewed results (no DVT), considered differential (DVT, mucle strain, tendonitis.), d/w patient Departure - Departure Disposition: 01 Home, Self Care Clinical Impression: Calf pain Qualifiers: Laterality: right Qualified Code(s): M79.661 - Pain in right lower leg Condition: Stable Record reviewed to determine appropriate education?: Yes Instructions: ED Muscle Pain Leg Cramps Comments: Your ultrasound is negative without any signs of DVT. Perhaps you have a muscle strain. Recheck if not improved well or worsening over the next week. Discharge Date/Time: 02/17/22 13:32
--- NOTE | 2022-02-17 13:18 | Ultrasound Report ---
PROCEDURE: Duplex Ext Veins Right INDICATIONS: R calf pain. TECHNIQUE: Real-time imaging, as well as color and pulse Doppler interrogation, were performed of the lower extr emity deep veins from the inguinal ligament to the popliteal fossa. COMPARISON: None. FINDINGS: The deep veins are normally compressible, and free of intraluminal thrombus. Color and pu lse Doppler demonstrate normal phasic intraluminal flow. There is normal augmentation response to di stal compression maneuver. IMPRESSION: Negative peripheral venous ultrasound of the right lower extremity for DVT. Reviewed by: Riley Vu MD on 02/17/2022 12:17 PM [facility]CO[facility] Approved by: Riley Vu MD on 02/17/2022 12:17 PM FRANCOIS Station ID: [id number]
[2022-02-17 13:33] VITALS: BP 128/62
== END 2022-02-17 13:32 | disposition home or self-care (01) ==
LOC: ED 11:07
DX: M79.661 Pain in right lower leg (principal)
CPT/HCPCS: 99282; 99284

== ENCOUNTER 2022-03-26 12:57 | Outpatient (CLI) | payer BC, OTHER ==
--- NOTE | 2022-03-27 10:30 | Mammography Report ---
BILATERAL DIGITAL SCREENING MAMMOGRAM 3D/2D WITH AUGMENTATION: 03/26/2022 CLINICAL: Routine screening. Comparison is made to exams dated: 01/26/2018 mammogram, 01/16/2017 mammogram - [facility], and 11/08/2015 mammogram - [facility]. There are scattered areas of fibroglandular density in both breasts (category b / 25%-50% glandular t issue). Bilateral breast implants are stable. No significant masses, calcifications, or other findings are seen in either breast. There has been no significant interval change. IMPRESSION: NEGATIVE There is no mammographic evidence of malignancy. A 1 year screening mammogram is recommended. Based on the Tyrer Cuzick model (a risk assessment model) the patients lifetime risk is 5.7% and her 10 year risk is 2.5%. According to the ACR, ACS, and NCCN guidelines, an annual breast MRI exam franny g with mammogram is recommended if the patients lifetime risk is 20% or greater. This exam was interpreted at Station ID: [id number]. NOTE: For mammograms, a report in lay terms will be sent to the patient. Approximately 15% of breast malignancies will not be visualized mammographically. In the management of a palpable breast mass, a negative mammogram must not discourage biopsy of a clinically suspicious lesion. Electronically Signed By: Adam waldron/blue:03/26/2022 14:02:55 ACR BI-RADS Category 1: Negative [id number] PARENCHYMAL PATTERN: (A) - The breast(s) demonstrate(s) scattered fibroglandular densities. BI-RADS CATEGORY: (1) - 1 RECOMMENDATION: (ANNUAL) - Recommend routine annual screening mammography. [id number] 1 year screening LATERALITY: (B)
== END 2022-03-26 12:58 | disposition home or self-care (01) ==
LOC: DI 12:57
PROVIDERS: ATTEND Registered Nurse
DX: Z12.31 Encounter for screening mammogram for malignant neoplasm of breast (principal)

== ENCOUNTER 2022-04-22 14:25 | Outpatient (CLI) | payer BC, OTHER ==
--- NOTE | 2022-04-22 18:33 | DEXA Report ---
PROCEDURE: Dexa Spine and/or Hip INDICATIONS: OSTEOPOROSIS TECHNIQUE: Dual energy x-ray absorptiometry (DXA) was performed on a [employer] System. Regions measur ed are the AP Spine, femoral neck, and if needed forearm. COMPARISON: 03/15/2020. FINDINGS: Lumbar Spine: Bone Mineral Density 0.956 g/cm/cm,T score -1.9. There is interval 2.4% increase in total lumbar s pine bone mineral density. Left Hip: Bone Mineral Density 0.861 g/cm/cm,T score -1.2. There is interval 0.5% increase in left total hip b one mineral density. Left Femoral Neck: Bone Mineral Density 0.806 g/cm/cm, T score -1.7. (T score greater or equal to -1.0: NORMAL) (T score from -1.1 to -2.4: OSTEOPENIA) (T score less than or equal to -2.5 to: OSTEOPOROSIS) Impression: Osteopenia. Patients with diagnosis of osteoporosis or osteopenia should have regular bone mineral density assess ment. For those eligible for Medicare, routine testing is allowed once every 2 years. Testing frequ ency can be increased for patients who have rapidly progressing disease or for those who are receivin g medical therapy to restore bone mass. Reviewed by: Jason Anaya MD on 04/22/2022 6:32 PM PDT Approved by: Jason Anaya MD on 04/22/2022 6:32 PM PDT Station ID: [id number]
== END 2022-04-22 14:26 | disposition home or self-care (01) ==
LOC: DI 14:25
PROVIDERS: ATTEND Registered Nurse
DX: M85.89 Other specified disorders of bone density and structure, multiple sites (principal)

== ENCOUNTER 2022-09-27 07:18 | Outpatient (CLI) | payer BC ==
[2022-09-27 14:51] LABS: BASOPHILS # (AUTO) 0.1 10^3/uL (0.0-0.1); BASOPHILS % (AUTO) 0.8 %; EOSINOPHILS # (AUTO) 0.3 10^3/uL (0.0-0.7); HCT - HEMATOCRIT 45.6 % (37.0-47.0); HGB - HEMOGLOBIN 14.7 g/dL (12.0-16.0); LYMPHOCYTES # (AUTO) 1.5 10^3/uL (1.5-3.5); LYMPHOCYTES % (AUTO) 25.5 %; MEAN CORPUSCULAR HEMOGLOBIN 30.9 pg (27.0-31.0); MEAN CORPUSCULAR HGB CONC 32.2 g/dL (32.0-36.0); MEAN CORPUSCULAR VOLUME 95.8 fL (81.0-99.0); MEAN PLATELET VOLUME 10.5 fL (7.9-10.8); MONOCYTES # (AUTO) 0.6 10^3/uL (0.0-1.0); MONOCYTES % (AUTO) 9.3 %; NEUTROPHILS # (AUTO) 3.6 10^3/uL (1.5-6.6); NEUTROPHILS % (AUTO) 59.2 %; PLT - PLATELET COUNT 200 10^3/uL (130-450); RED BLOOD COUNT 4.76 10^6/uL (4.20-5.40); RED CELL DISTRIBUTION WIDTH 13.8 % (12.0-15.0)
[2022-09-27 15:27] LABS: ALBUMIN 4.1 g/dL (3.2-5.5); ALBUMIN/GLOBULIN RATIO 1.4 (1.0-2.2); ALKALINE PHOSPHATASE 67 IU/L (42-121); ALT ALANINE AMINOTRANSFERASE 22 IU/L (10-60); AST ASPARTATE AMINOTRANSFERASE 24 IU/L (10-42); BILIRUBIN,TOTAL 0.6 mg/dL (0.2-1.0); BUN - BLOOD UREA NITROGEN 16 mg/dL (6-20); CALCIUM 9.3 mg/dL (8.5-10.3); CARBON DIOXIDE - CO2 29 mmol/L (21-32); CHLORIDE 107 mmol/L (101-111); CHOL/HDL RATIO 2.2 (<4.4); CHOLESTEROL 180 mg/dL; CREATININE 0.8 mg/dL (0.4-1.0); GFR - MDRD 72 (>89); GLUCOSE 92 mg/dL (70-100); HDL CHOLESTEROL 81 mg/dL; LDL CHOLESTEROL,CALCULATED 90 mg/dL; LDL/HDL RATIO 1.1 (<4.4); POTASSIUM 4.2 mmol/L (3.5-5.0); SODIUM 142 mmol/L (135-145); TRIGLYCERIDES 46 mg/dL; VLDL CHOLESTEROL 9 mg/dL
[2022-09-30 06:08] LABS: HCV AB Non Reactive (Non Reactive)
== END 2022-09-27 07:19 | disposition home or self-care (01) ==
LOC: LAB.S 07:18
PROVIDERS: ATTEND Internal Medicine
DX: Z00.00 Encounter for general adult medical examination without abnormal findings (principal); M81.0 Age-related osteoporosis without current pathological fracture; Z11.59 Encounter for screening for other viral diseases; Z13.21 Encounter for screening for nutritional disorder
CPT/HCPCS: 36415; 80053; 80061; 82306; 83721; 84443; 85025; 86803

== ENCOUNTER 2022-12-02 08:00 | Outpatient (CLI) | payer BC | END 2022-12-02 23:59 | disposition home or self-care (01) | LOC: LAB.S 08:00 | PROVIDERS: ATTEND Physician Assistant Medical | DX: N39.0 Urinary tract infection, site not specified (principal) | CPT/HCPCS: 87086 ==

== ENCOUNTER 2023-10-30 07:04 | Outpatient (CLI) | payer BC, MEDICARE ==
[2023-10-30 14:35] LABS: BASOPHILS # (AUTO) 0.1 10^3/uL (0.0-0.1); BASOPHILS % (AUTO) 1.2 %; EOSINOPHILS # (AUTO) 0.3 10^3/uL (0.0-0.7); EOSINOPHILS % (AUTO) 5.2 %; HCT - HEMATOCRIT 45.6 % (37.0-47.0); HGB - HEMOGLOBIN 14.2 g/dL (12.0-16.0); LYMPHOCYTES # (AUTO) 1.6 10^3/uL (1.5-3.5); LYMPHOCYTES % (AUTO) 26.9 %; MEAN CORPUSCULAR HGB CONC 31.1 g/dL (32.0-36.0); MEAN CORPUSCULAR VOLUME 96.4 fL (81.0-99.0); MEAN PLATELET VOLUME 10.3 fL (7.9-10.8); MONOCYTES # (AUTO) 0.6 10^3/uL (0.0-1.0); MONOCYTES % (AUTO) 9.5 %; NEUTROPHILS # (AUTO) 3.4 10^3/uL (1.5-6.6); PLT - PLATELET COUNT 227 10^3/uL (130-450); RED BLOOD COUNT 4.73 10^6/uL (4.20-5.40)
[2023-10-30 15:11] LABS: ALBUMIN 4.1 g/dL (3.2-5.5); ALBUMIN/GLOBULIN RATIO 1.4 (1.0-2.2); ALKALINE PHOSPHATASE 73 IU/L (42-121); ALT ALANINE AMINOTRANSFERASE 16 IU/L (10-60); AST ASPARTATE AMINOTRANSFERASE 19 IU/L (10-42); BILIRUBIN,TOTAL 0.6 mg/dL (0.2-1.0); BUN - BLOOD UREA NITROGEN 17 mg/dL (6-20); CALCIUM 9.5 mg/dL (8.5-10.3); CARBON DIOXIDE - CO2 29 mmol/L (21-32); CHLORIDE 104 mmol/L (101-111); CHOL/HDL RATIO 2.7 (<4.4); CHOLESTEROL 201 mg/dL; CREATININE 0.8 mg/dL (0.6-1.3); GFR - MDRD 72 (>89); GLUCOSE 81 mg/dL (74-104); HDL CHOLESTEROL 74 mg/dL; LDL CHOLESTEROL,CALCULATED 107 mg/dL; LDL/HDL RATIO 1.4 (<4.4); SODIUM 138 mmol/L (135-145); TOTAL PROTEIN 7.1 g/dL (6.4-8.9); TRIGLYCERIDES 102 mg/dL (48-352); VLDL CHOLESTEROL 20 mg/dL
[2023-10-30 15:12] LABS: THYROID STIMULATING HORMONE 1.12 uIU/mL (0.34-5.60)
[2023-10-30 20:15] LABS: ESTIMATED AVERAGE GLUCOSE 108 mg/dL (70-100); HEMOGLOBIN A1c% 5.4 % (4.27-6.07)
[2023-10-30 23:12] LABS: CHLAMYDIA TRACHOMATIS DNA NEGATIVE (NEGATIVE); NEISSERIA GONORRHOEAE DNA NEGATIVE (NEGATIVE); TRICHOMONAS VAGINALIS DNA NEGATIVE (NEGATIVE)
[2023-10-31 02:08] LABS: VITAMIN D 25-HYDROXY 68.9 ng/mL (30.0-100.0)
[2023-10-31 07:10] LABS: HIV SCREEN 4TH GENERATION Non Reactive (Non Reactive)
[2023-10-31 16:08] LABS: TREPONEMA PALLIDUM ANTIBODIES Non Reactive (Non Reactive)
== END 2023-10-30 07:05 | disposition home or self-care (01) ==
LOC: LAB.S 07:04
PROVIDERS: ATTEND Internal Medicine
DX: I48.0 Paroxysmal atrial fibrillation (principal); E78.2 Mixed hyperlipidemia; R73.01 Impaired fasting glucose; R53.83 Other fatigue; M81.0 Age-related osteoporosis without current pathological fracture; Z11.3 Encounter for screening for infections with a predominantly sexual mode of transmission
CPT/HCPCS: 36415; 80053; 80061; 82306; 83036; 84443; 85025; 86780; 87491; 87591; 87661; G0475; 83721; 87389